=== PATIENT | female | born 1970 | race Two or more races ===

== ENCOUNTER 2016-12-11 19:53 | Emergency (ER) | payer OTHER ==
[~2016-12-11] VITALS: Ht 165.1 cm; Wt 79.4 kg
[~2016-12-11 19:53] MED LIST: ALPR0.5T8; BISA5TAB10; CITA20TA11; DIAZ5TAB4; DOCU100C22; FAMO40TA7; HYDR-3658; OMEP40CA37
[2016-12-11 20:31] VITALS: BP 133/79
[2016-12-11] MEDS ORDERED: IBUPROFEN 600 MG TABLET PO ONE (22:00)
== END 2016-12-11 21:52 | disposition home or self-care (01) ==
LOC: ER 19:56
DX: R51 Headache (principal); H53.149 Visual discomfort, unspecified; K21.9 Gastro-esophageal reflux disease without esophagitis; Z88.5 Allergy status to narcotic agent; Z88.8 Allergy status to other drugs, medicaments and biological substances; Z88.6 Allergy status to analgesic agent
CPT/HCPCS: 99282; A4606; Z7610

== ENCOUNTER → 2017-02-10 | Emergency (ER) | payer OTHER ==
--- NOTE | 2017-02-10 21:27 | NUR ---
LEFT LEFT BEFORE FULLY REGISTERED.
== END | disposition left against medical advice (07) ==
LOC: ER 21:20
DX: Z53.21 Procedure and treatment not carried out due to patient leaving prior to being seen by health care provider (principal)
CPT/HCPCS: A4606; Z7610

== ENCOUNTER 2017-08-25 01:38 | Emergency (ER) | payer OTHER ==
[~2017-08-25] VITALS: Ht 165.1 cm; Wt 70.3 kg
[2017-08-25 01:48] VITALS: BP 117/89
[2017-08-25] MEDS ORDERED: DEXAMETHASONE SOD PHOSPHATE 10 MG/ML VIAL ONE (02:26)
[2017-08-25] MEDS ORDERED: IBUPROFEN 400 MG TABLET ONE (02:26)
[2017-08-25] MEDS ORDERED: IBUPROFEN 400 MG TABLET PO ONE (02:30)
[2017-08-25] MEDS ORDERED: DEXAMETHASONE SOD PHOSPHATE 4 MG/ML VIAL IM ONE (02:30)
== END 2017-08-25 02:51 | disposition home or self-care (01) ==
LOC: ER 01:40
DX: M62.830 Muscle spasm of back (principal); K21.9 Gastro-esophageal reflux disease without esophagitis; F41.9 Anxiety disorder, unspecified; Z98.890 Other specified postprocedural states; Z88.6 Allergy status to analgesic agent; Z88.8 Allergy status to other drugs, medicaments and biological substances
CPT/HCPCS: 96372; 99283; A4606; J1100; Z7610

== ENCOUNTER 2017-08-30 20:43 | Emergency (ER) | payer OTHER ==
[~2017-08-30] VITALS: Ht 165.1 cm; Wt 70.3 kg
--- NOTE | 2017-08-30 21:20 | NUR ---
To bed 7 a 47 yo female bibself with c/o sharp lt lower back pain radiates x LLE x 1 wk, seen a wk ago for muscle spasms, took ibuprofen w/ no relief, no trauma. Nad noted. VSS. comfort measures rendered.
[2017-08-30] MEDS ORDERED: KETOROLAC TROMETHAMINE INJ 60 MG/2 ML VIAL IM ONE ×2 (21:36→22:00)
--- NOTE | 2017-08-30 21:41 | NUR ---
medicated patient as ordered by Diomedes Valle.
--- NOTE | 2017-08-30 22:02 | NUR ---
Patient to radiology.
[2017-08-30 23:09] VITALS: BP 120/80
--- NOTE | 2017-08-30 23:09 | NUR ---
Patient discharged to home in stable condition. Written and verbal after care instructions given. Patient verbalizes understanding of instruction. Patient is ambulatory with steady gait, no further complaints.
== END 2017-08-30 23:09 | disposition home or self-care (01) ==
LOC: ER 20:48
DX: M54.5 Low back pain (principal); K21.9 Gastro-esophageal reflux disease without esophagitis; F41.9 Anxiety disorder, unspecified; Z98.890 Other specified postprocedural states; Z88.5 Allergy status to narcotic agent; Z88.8 Allergy status to other drugs, medicaments and biological substances
CPT/HCPCS: 72110; 96372; 99284; A4606; J1885; Z7610